=== PATIENT | male | born 1980 | race Caucasian/White ===

== ENCOUNTER 2018-08-08 22:14 | Emergency (ER) | payer OTHER ==
[~2018-08-08] VITALS: Ht 177.8 cm; Wt 68.0 kg
--- NOTE | 2018-08-08 22:23 | NUR ---
PT TAKEN TO BED 9
[2018-08-08 22:25] VITALS: BP 119/75
--- NOTE | 2018-08-08 22:30 | NUR ---
PT TO ED WITH C/O OF L BUTTOCK ABSCESS. PT DENIES DRAINAGE TO SITE. RED RAISED BUMP NOTED TO L BUTTOCK. PT PLACED INTO BED, PENDING MD SHORT.
--- NOTE | 2018-08-08 22:32 | NUR ---
Dr. Rodriguez evaluating patient at bedside.
[2018-08-08] MEDS ORDERED: NACL 0.9% 1,000 ML IV SCH (22:33)
[2018-08-08] MEDS ORDERED: KETOROLAC 30 MG/ML VIAL IVP ONE (22:35)
[2018-08-08] MEDS ORDERED: VANCOMYCIN 1,000 MG in DEXTROSE 5% 250 ML IV ONE (22:35)
--- NOTE | 2018-08-08 22:45 | NUR ---
PATIENT ELOPED FROM FACILITY. DISCHARGE INSTRUCTIONS NOT GIVEN TO PATIENT. DR. TEE NOTIFIED.
[2018-08-08 22:47] VITALS: BP 119/75
== END 2018-08-08 22:45 | disposition left against medical advice (07) ==
LOC: MED 22:14
DX: L02.31 Cutaneous abscess of buttock (principal)
CPT/HCPCS: 99281